=== PATIENT | male | born 1985 | race African-American/Black ===

== ENCOUNTER 2019-02-08 12:41 | Emergency (ER) | payer OTHER ==
[~2019-02-08] VITALS: Ht 182.9 cm; Wt 70.3 kg
[2019-02-08] MEDS: KETOROLAC TROMETHAMINE 15 MG INJ IVP ONE (13:38)
[2019-02-08] MEDS ORDERED: KETOROLAC TROMETHAMINE 15 MG INJ ONE (13:39)
[2019-02-08 13:43] LABS: *BLOOD, URINE NEGATIVE (NEGATIVE); *CLARITY,URINE CLEAR (CLEAR); *COLOR,URINE YELLOW (YELLOW); *KETONES,URINE TRACE (NEGATIVE); LEUKOCYTE ESTERASE ,URINE NEGATIVE (NEGATIVE); NITRITE, URINE NEGATIVE (NEGATIVE); UGLUCOSE NEGATIVE (NEGATIVE)
[2019-02-08 13:46] LABS: BASOPHILS # (AUTO) 0.1 K/uL (0.0-8.0); BASOPHILS % (AUTO) 2.3 % (0.0-2.0); EOSINOPHILS % (AUTO) 0.2 % (0.0-7.0); HEMATOCRIT 45.3 % (36.7-47.1); HEMOGLOBIN 15.1 g/dL (12.5-16.3); LYMPHOCYTES # (AUTO) 1.2 K/uL (20.0-40.0); LYMPHOCYTES % (AUTO) 27.7 % (20.5-51.5); MEAN CORPUSCULAR HEMOGLOBIN 30.6 uug (23.8-33.4); MEAN CORPUSCULAR HGB CONC 33 g/dL (32.5-36.3); MEAN CORPUSCULAR VOLUME 91.9 fL (73.0-96.2); MONOCYTES # (AUTO) 0.3 K/uL (2.0-10.0); MONOCYTES % (AUTO) 7.5 % (0.0-11.0); NEUTROPHILS # (AUTO) 2.6 K/uL (1.8-8.9); NEUTROPHILS % (AUTO) 62.3 % (38.5-71.5); PLATELET COUNT (AUTO) 321 K/uL (152-348); RED BLOOD CELL COUNT(AUTO) 4.93 MIL/uL (4.06-5.63); WHITE BLOOD COUNT (AUTO) 4.2 K/uL (3.6-10.2)
[2019-02-08] MEDS ORDERED: HYDROMORPHONE 1 MG/1 ML DISP.SYRIN ONE (13:53)
[2019-02-08] MEDS ORDERED: ONDANSETRON 4 MG/2 ML VIAL ONE (13:53)
[2019-02-08] MEDS: HYDROMORPHONE 1 MG/1 ML DISP.SYRIN IV ONE (13:54)
[2019-02-08 13:56] LABS: *BILIRUBIN,URIN 1+ (NEGATIVE)
[2019-02-08 13:57] LABS: BACTERIA,URINE FEW /HPF (NONE SEEN); RBC,URINE 0-3 /HPF (0-3); SQUAMOUS EPITHELIAL CELL,UR FEW /HPF (NONE SEEN); WBC,URINE 0-3 /HPF (0-3)
[2019-02-08 13:57] LABS: POTASSIUM 4.2 mmol/L (3.5-5.1)
[2019-02-08] MEDS: ONDANSETRON 4 MG/2 ML VIAL IV ONE (13:58)
[2019-02-08 14:02] LABS: BILIRUBIN,DIRECT 0.1 mg/dL (0.0-0.2); BILIRUBIN,TOTAL 0.6 mg/dL (0.2-1.0)
--- NOTE | 2019-02-08 14:28 | NUR ---
Pt back from CT, resting in bed.
[2019-02-08] MEDS ORDERED: BISACODYL 5 MG TABLET.DR PO ONE (16:48)
[2019-02-08] MEDS ORDERED: CIPROFLOXACIN HCL 250 MG TABLET ONE (16:49)
[2019-02-08] MEDS: BISACODYL 5 MG TABLET.DR PO ONE (16:53)
[2019-02-08] MEDS: CIPROFLOXACIN HCL 250 MG TABLET PO ONE (16:53)
--- NOTE | 2019-02-08 16:56 | NUR ---
IV removed. Catheter intact and site benign. Pressure and 4x4 gauze applied to site. No bleeding noted.
[2019-02-08 16:59] VITALS: BP 105/69
== END 2019-02-08 17:00 | disposition home or self-care (01) ==
LOC: ER 12:41
DX: N41.0 Acute prostatitis (principal); Z88.0 Allergy status to penicillin
CPT/HCPCS: 36415; 74176; 76870; 80048; 80076; 81000; 81001; 83690; 85025; 96374; 96375; 99284; J1170; J1885; J2405; A4663

== ENCOUNTER 2019-04-13 00:58 | Emergency (ER) | payer OTHER ==
[~2019-04-13] VITALS: Ht 180.3 cm; Wt 68.0 kg
--- NOTE | 2019-04-13 01:15 | NUR ---
Patient ambulating with steady gait. A&O x4. c/o abdominal pain that radiates to testes. sudden onset per pt and has hx of similar problem. Breathing even and unlabored. Denies any SOB. Speech is clear and able to make needs known / follow commands. Denies any N / V / D.
--- NOTE | 2019-04-13 01:30 | NUR ---
Dr. Watts at bedside for MSE
--- NOTE | 2019-04-13 03:01 | NUR ---
patient in bed sleeping but easily arousable. patient unable to provide urine sample. provided fluids but patient did not drink.
--- NOTE | 2019-04-13 03:21 | NUR ---
Patient given written and verbal discharge instructions. Patient verbalizes understanding of instructions. Patient is ambulatory with steady gait. Refuses offer of [facility] placement. Patient given list of available shelters in surrounding area.
== END 2019-04-13 03:21 | disposition home or self-care (01) ==
LOC: ER 01:00
DX: N50.819 Testicular pain, unspecified (principal); F17.200 Nicotine dependence, unspecified, uncomplicated; F15.10 Other stimulant abuse, uncomplicated; F12.10 Cannabis abuse, uncomplicated; Z59.0 Homelessness; Z88.0 Allergy status to penicillin
CPT/HCPCS: 76870; A4663

== ENCOUNTER 2020-07-19 06:16 | Emergency (ER) | payer OTHER ==
[~2020-07-19] VITALS: Ht 172.7 cm; Wt 66.0 kg
--- NOTE | 2020-07-19 06:25 | NUR ---
MD Rodriguez in room to do MSE.
--- NOTE | 2020-07-19 06:48 | NUR ---
Hand-off report given to JACK Leal.
[2020-07-19 06:51] LABS: BASOPHILS % (AUTO) 1.3 % (0.0-2.0); EOSINOPHILS % (AUTO) 1.3 % (0.0-7.0); HEMATOCRIT 40.8 % (36.7-47.1); HEMOGLOBIN 13.6 g/dL (12.5-16.3); LYMPHOCYTES # (AUTO) 1.2 K/uL (20.0-40.0); LYMPHOCYTES % (AUTO) 34.6 % (20.5-51.5); MEAN CORPUSCULAR HEMOGLOBIN 30.4 uug (23.8-33.4); MEAN CORPUSCULAR HGB CONC 33 g/dL (32.5-36.3); MEAN CORPUSCULAR VOLUME 91.1 fL (73.0-96.2); MONOCYTES # (AUTO) 0.3 K/uL (2.0-10.0); MONOCYTES % (AUTO) 8.6 % (0.0-11.0); NEUTROPHILS # (AUTO) 1.9 K/uL (1.8-8.9); NEUTROPHILS % (AUTO) 54.2 % (38.5-71.5); PLATELET COUNT (AUTO) 344 K/uL (152-348); RED BLOOD CELL COUNT(AUTO) 4.48 MIL/uL (4.06-5.63); WHITE BLOOD COUNT (AUTO) 3.5 K/uL (3.6-10.2)
[2020-07-19 07:03] LABS: ETHANOL < 3 MG/DL (0-0)
[2020-07-19 07:04] LABS: ALANINE AMINOTRANSFERASE 35 U/L (16-63); ALKALINE PHOSPHATASE 127 U/L (50-136); ASPARTATE AMINOTRANSFERASE 21 U/L (15-37); BILIRUBIN,DIRECT 0.1 mg/dL (0.0-0.2); BILIRUBIN,TOTAL 0.5 mg/dL (0.2-1.0); CARBON DIOXIDE 28 mmol/L (21-32); CHLORIDE 103 mmol/L (98-107); GLUCOSE 88 mg/dL (74-106); POTASSIUM 3.7 mmol/L (3.5-5.1); TOTAL PROTEIN, SERUM 7.3 g/dL (6.4-8.2); UREA NITROGEN, BLOOD 26 mg/dL (7-18)
[2020-07-19 07:12] LABS: ACETAMINOPHEN < 2.0 ug/mL (10-30)
--- NOTE | 2020-07-19 07:13 | NUR ---
PT IS RESTING IN BED COMFORTABLY. CONTINUE TO MONITOR THE PT.
--- NOTE | 2020-07-19 11:49 | NUR ---
10:15am: This SW attempted to meet with the patient. Reason for consultation is homelessness. Patient was asleep in his assigned ED bed. SW attempted to awaken the patient by calling his name twice, however patient was not arousable. Per report from RN Elvis, patient was lethargic earlier. Per ED physicians report, patient was brought in by paramedics for evaluation of altered mental status, and unable to provide history at time of arrival. SW will remain available to patient, as needed, and will remain available to RN to ensure a safe and proper discharge.
--- NOTE | 2020-07-19 15:01 | NUR ---
Pt was d/c'D to home. D/C instructions given to the pt by dr Cintron.
[2020-07-19 15:06] VITALS: BP 128/81
== END 2020-07-19 15:07 | disposition home or self-care (01) ==
LOC: ER 06:24
DX: T65.91XA Toxic effect of unspecified substance, accidental (unintentional), initial encounter (principal); R41.82 Altered mental status, unspecified; R53.83 Other fatigue; Y92.89 Other specified places as the place of occurrence of the external cause; Z88.0 Allergy status to penicillin; Z59.0 Homelessness; F17.200 Nicotine dependence, unspecified, uncomplicated; Z82.49 Family history of ischemic heart disease and other diseases of the circulatory system
CPT/HCPCS: 36415; 70450; 85025; A4663; G0480

== ENCOUNTER 2020-09-27 20:01 | Emergency (ER) | payer OTHER ==
[~2020-09-27] VITALS: Ht 182.9 cm; Wt 68.0 kg
[2020-09-27] MEDS ORDERED: IV NORMAL SALINE 1000 ML BAG IV ONE (20:15)
[2020-09-27] MEDS ORDERED: ONDANSETRON 4 MG/2 ML VIAL IV ONE (20:15)
[2020-09-27] MEDS ORDERED: HYDROMORPHONE 1 MG/1 ML DISP.SYRIN IV ONE (20:15)
[2020-09-27 20:28] LABS: *COLOR,URINE YELLOW (YELLOW)
[2020-09-27 20:29] LABS: *BILIRUBIN,URIN NEGATIVE (NEGATIVE); *BLOOD, URINE NEGATIVE (NEGATIVE); *KETONES,URINE NEGATIVE (NEGATIVE); LEUKOCYTE ESTERASE ,URINE NEGATIVE (NEGATIVE); NITRITE, URINE NEGATIVE (NEGATIVE); UGLUCOSE TRACE (NEGATIVE)
[2020-09-27] MEDS ORDERED: HYDROMORPHONE 1 MG/1 ML DISP.SYRIN ONE (20:30)
[2020-09-27] MEDS ORDERED: ONDANSETRON 4 MG/2 ML VIAL ONE (20:30)
[2020-09-27 20:33] LABS: BASOPHILS # (AUTO) 0.1 K/uL (0.0-8.0); EOSINOPHILS # (AUTO) 0.1 K/uL (0.0-0.7); EOSINOPHILS % (AUTO) 1.1 % (0.0-7.0); HEMATOCRIT 42.4 % (36.7-47.1); HEMOGLOBIN 14.1 g/dL (12.5-16.3); LYMPHOCYTES # (AUTO) 1.2 K/uL (20.0-40.0); LYMPHOCYTES % (AUTO) 21.7 % (20.5-51.5); MEAN CORPUSCULAR HEMOGLOBIN 30.5 uug (23.8-33.4); MEAN CORPUSCULAR HGB CONC 33 g/dL (32.5-36.3); MEAN CORPUSCULAR VOLUME 91.8 fL (73.0-96.2); MONOCYTES # (AUTO) 0.3 K/uL (2.0-10.0); MONOCYTES % (AUTO) 4.6 % (0.0-11.0); NEUTROPHILS # (AUTO) 3.9 K/uL (1.8-8.9); NEUTROPHILS % (AUTO) 71.6 % (38.5-71.5); PLATELET COUNT (AUTO) 360 K/uL (152-348); RED BLOOD CELL COUNT(AUTO) 4.62 MIL/uL (4.06-5.63); WHITE BLOOD COUNT (AUTO) 5.5 K/uL (3.6-10.2)
[2020-09-27 20:35] LABS: *CLARITY,URINE HAZY (CLEAR); BACTERIA,URINE FEW /HPF (NONE SEEN); RBC,URINE 0-3 /HPF (0-3); SQUAMOUS EPITHELIAL CELL,UR NONE SEEN /HPF (NONE SEEN)
[2020-09-27 20:36] LABS: CALCIUM OXALATE CRYSTALS,UR MODERATE /HPF (NONE SEEN)
[2020-09-27 20:41] LABS: CREATININE 1.1 mg/dL (0.6-1.3); POTASSIUM 3.5 mmol/L (3.5-5.1)
--- NOTE | 2020-09-27 20:41 | NUR ---
Aubrey belle in [facility] - 09/27/20 at 2042 by GARRETT MD Holguin in room to do MSE.
--- NOTE | 2020-09-27 20:42 | NUR ---
GIVEN PAIN MEDICATION DILAUDID AND ZOFRAN FOR NAUSEA.
[2020-09-27 20:47] LABS: BILIRUBIN,DIRECT 0.1 mg/dL (0.0-0.2); BILIRUBIN,TOTAL 0.3 mg/dL (0.2-1.0); TOTAL PROTEIN, SERUM 7.2 g/dL (6.4-8.2)
[2020-09-27] MEDS ORDERED: SWABABLE VALVE TRANSFER SET EA MC ONE (20:53)
[2020-09-27] MEDS ORDERED: IOHEXOL 300MG/ML 100 ML INFUS..BTL ONE (20:54)
[2020-09-27] MEDS ORDERED: IV NORMAL SALINE 250 ML IV ONE (20:54)
--- NOTE | 2020-09-27 20:56 | NUR ---
GOING TO CT FOR CT OF THE ABDOMEN W/CONTRAST OF THE LLQ C/O TENDER ABDOMEN WHEN TOUCH .
[2020-09-27] MEDS ORDERED: HYDR-4209 PO (21:44)
--- NOTE | 2020-09-27 22:15 | NUR ---
DOCTOR SPOKED WITH PATIENT WITH REGARDS TO FINDINGS AND LAB RESULTS .
--- NOTE | 2020-09-27 22:51 | NUR ---
Patient given written and verbal discharge instructions. Patient verbalizes understanding of instructions. Patient is ambulatory with steady gait. Refuses offer of nursing home placement. Patient given list of available shelters in surrounding area.WENT WITH ALL BELONGINGS .V/[facility] , NO RESPIRATORY .
[2020-09-27 22:52] VITALS: BP 105/64
== END 2020-09-27 22:53 | disposition home or self-care (01) ==
LOC: ER 20:03
DX: R10.32 Left lower quadrant pain (principal); Z59.0 Homelessness; F17.210 Nicotine dependence, cigarettes, uncomplicated; Z88.0 Allergy status to penicillin; F15.20 Other stimulant dependence, uncomplicated
CPT/HCPCS: 36415; 74177; 80048; 80076; 81001; 83690; 85025; 85730; 87086; 96361; 96374; 96375; 99285; 99406; J1170; J2405; Q9967; A4663; J7030; J7050